=== PATIENT | female | born 1975 | race Caucasian/White ===

== ENCOUNTER 2016-12-07 12:48 | Emergency (ER) | payer OTHER ==
[~2016-12-07] VITALS: Ht 172.7 cm; Wt 113.4 kg
[2016-12-07 12:49] VITALS: BP 175/88
[2016-12-07] MEDS ORDERED: WELLBUTRIN 100100 MG (13:43)
[2016-12-07] MEDS ORDERED: FLEXERIL PO ×2 (13:44→13:55)
[2016-12-07] MEDS ORDERED: ATIVAN0.5 MG PO (13:45)
[2016-12-07] MEDS ORDERED: HYDROCODONE-AP1 EAC6 PO (13:55)
== END 2016-12-07 14:19 | disposition home or self-care (01) ==
LOC: ER 12:48
DX: M25.511 Pain in right shoulder (principal); M54.2 Cervicalgia; S16.1XXA Strain of muscle, fascia and tendon at neck level, initial encounter; W19.XXXA Unspecified fall, initial encounter; Y93.89 Activity, other specified; Y92.89 Other specified places as the place of occurrence of the external cause; Y99.0 Civilian activity done for income or pay; M79.7 Fibromyalgia